=== PATIENT | female | born 1960 | race Two or more races ===

== ENCOUNTER 2022-11-24 07:41 | Emergency (ER) | payer OTHER ==
[~2022-11-24] VITALS: Ht 160 cm; Wt 81.6 kg
[2022-11-24 07:57] VITALS: BP 146/91; TEMP 98.9
[2022-11-24] MEDS ORDERED: ACETAMINOPHEN ES 500 MG TABLET PO ONE (08:30)
[2022-11-24] MEDS ORDERED: TOPIRAMATE 25 MG TABLET PO ONE (08:30)
[2022-11-24] MEDS ORDERED: LORAZEPAM 1 MG TABLET PO ONE (08:30)
[2022-11-24 10:36] LABS: BILIRUBIN,URINE NEGATIVE (NEGATIVE); COLOR,URINE YELLOW (YELLOW); LEUKOCYTE ESTERASE ,URINE 2+ (NEGATIVE); NITRITE, URINE NEGATIVE (NEGATIVE); PH,URINE 7.5 (5.0-8.0); PROTEIN,URINE NEGATIVE (NEGATIVE); UGLUCOSE NEGATIVE (NEGATIVE); UROBILINOGEN,URINE 0.2 EU/dL (0.2)
[2022-11-24 10:41] LABS: CALCIUM, SERUM 9.3 mg/dL (8.5-10.1); CARBON DIOXIDE 30 mmol/L (21-32); CHLORIDE 107 mmol/L (98-107); CREATININE 0.8 mg/dL (0.6-1.3); GLUCOSE 91 mg/dL (74-106); POTASSIUM 3.5 mmol/L (3.5-5.1); SODIUM SERUM 142 mmol/L (136-145); UREA NITROGEN, BLOOD 7 mg/dL (7-18)
[2022-11-24 10:42] LABS: BASOPHILS # (AUTO) 0.3 K/uL (0.0-0.2); BASOPHILS % (AUTO) 3.9 % (0.0-2.0); EOSINOPHILS % (AUTO) 4.7 % (0.0-6.0); HEMATOCRIT 36 % (33-45); HEMOGLOBIN 12.2 g/dL (11.5-14.8); LYMPHOCYTES # (AUTO) 1.4 K/uL (0.8-4.8); LYMPHOCYTES % (AUTO) 18.6 % (20.0-44.0); MEAN CORPUSCULAR HGB CONC 34 g/dl (31.0-36.0); MEAN CORPUSCULAR VOLUME 88 fL (82-100); MONOCYTES # (AUTO) 0.5 K/uL (0.1-1.30); MONOCYTES % (AUTO) 7.3 % (2.0-12.0); NEUTROPHILS # (AUTO) 4.9 K/uL (1.8-8.9); NEUTROPHILS % (AUTO) 65.5 % (43.0-81.0); PLATELET COUNT (AUTO) 412 K/uL (150-450); RED BLOOD CELL COUNT(AUTO) 4.09 MIL/uL (4.0-5.2); WHITE BLOOD COUNT (AUTO) 7.4 K/uL (4.3-11.0)
[2022-11-24 10:51] LABS: BACTERIA,URINE Few /HPF (None Seen); SQUAMOUS EPITHELIAL CELL,UR Rare /HPF (None Seen)
[2022-11-24] MEDS ORDERED: ACETAMINOPHEN ES 500 MG TABLET ONE (10:53)
[2022-11-24] MEDS ORDERED: LORAZEPAM 1 MG TABLET ONE (10:54)
[2022-11-24] MEDS ORDERED: TOPIRAMATE 25 MG TABLET ONE (10:54)
[2022-11-24 10:56] LABS: ALANINE AMINOTRANSFERASE 24 U/L (12-78); ALBUMIN 3.4 g/dL (3.4-5.0); ALCOHOL, BLOOD < 3 mg/dL (0-10); ALKALINE PHOSPHATASE 93 U/L (46-116); ASPARTATE AMINOTRANSFERASE 16 U/L (15-37); BILIRUBIN,DIRECT 0.1 mg/dL (0.0-0.2); BILIRUBIN,TOTAL 0.4 mg/dL (0.2-1.0)
[2022-11-24] MEDS ORDERED: IBUPROFEN 400 MG TABLET PO ONE (11:30)
[2022-11-24] MEDS ORDERED: IBUPROFEN 400 MG TABLET ONE ×2 (12:00→12:04)
--- NOTE | 2022-11-24 12:51 | NUR ---
CRISIS TEAM AT BEDSIDE
[2022-11-24] MEDS ORDERED: IBUP-1955 PO (13:32)
[2022-11-24] MEDS ORDERED: FLUO20CA36 PO (13:32)
[2022-11-24] MEDS ORDERED: TOPI25TA PO (13:32)
[2022-11-24] MEDS ORDERED: LEVO25TA7 PO (13:32)
[2022-11-24] MEDS ORDERED: TOPI15CA11 PO (13:32)
== END 2022-11-24 14:15 | disposition home or self-care (01) ==
LOC: ER 07:46
DX: F43.0 Acute stress reaction (principal); N64.4 Mastodynia; F32.A Depression, unspecified; E03.9 Hypothyroidism, unspecified; Z86.69 Personal history of other diseases of the nervous system and sense organs; Z60.2 Problems related to living alone; Z79.899 Other long term (current) drug therapy
CPT/HCPCS: 36415; 76642-LT-TC; 80048-TC; 80076-TC; 81001; 84443-TC; 85025-TC; 87086-TC; G0480

== ENCOUNTER 2022-12-22 08:46 | Emergency (ER) | payer OTHER ==
[~2022-12-22] VITALS: Ht 160 cm; Wt 85.7 kg
[~2022-12-22 08:46] MED LIST: FLUO20CA36 PO; IBUP-1955 PO; LEVO25TA7 PO; TOPI15CA11 PO; TOPI25TA PO
--- NOTE | 2022-12-22 08:55 | NUR ---
pt put on bed, alert /oriented, on room air, attached to monitors, denies any c/r distress
--- NOTE | 2022-12-22 09:00 | NUR ---
dr haskins at bedside for eval
[2022-12-22] MEDS ORDERED: LORA-259 PO (09:04)
[2022-12-22 09:15] VITALS: BP 110/85; TEMP 98; O2SAT 100
--- NOTE | 2022-12-22 09:18 | NUR ---
Patient discharged in stable condition. Written and verbal after care instructions given. refused to sign discharge paper
--- NOTE | 2022-12-22 10:00 | NUR ---
greenhouse specialist came to talk to her, and pt still refuses to be discharge. sabrina sup, wants nursing home social worker talk to her
--- NOTE | 2022-12-22 10:22 | NUR ---
CALLED [facility] [phone] WILL SEND A UNIT PER RAIL [employer]PER[employer] [id number]
== END 2022-12-22 09:38 | disposition home or self-care (01) ==
LOC: ER 08:48
DX: R56.9 Unspecified convulsions (principal); Z76.0 Encounter for issue of repeat prescription; Z98.890 Other specified postprocedural states; Z79.899 Other long term (current) drug therapy; Z60.2 Problems related to living alone